=== PATIENT | male | born 1970 | race African-American/Black ===

== ENCOUNTER 2021-03-11 21:35 | Emergency (ER) | payer SELFPAY ==
[~2021-03-11] VITALS: Ht 180.3 cm; Wt 90.0 kg
[2021-03-11] MEDS ORDERED: ONDANSETRON 4MG ODT PO ONE (22:30)
[2021-03-12 00:10] VITALS: BP 134/76
== END 2021-03-12 00:20 | disposition home or self-care (01) ==
LOC: ER 21:35
DX: F12.10 Cannabis abuse, uncomplicated (principal); R11.0 Nausea; R53.1 Weakness; R42 Dizziness and giddiness
CPT/HCPCS: 93005; 99283; Q0162